=== PATIENT | female | born 1985 | race Asian ===

== ENCOUNTER 2020-04-21 16:48 | Emergency (ER) | payer OTHER, SELFPAY ==
[~2020-04-21] VITALS: Ht 152.4 cm; Wt 59.0 kg
[2020-04-21 16:54] VITALS: Ht 152.4 cm; Wt 59.0 kg
[2020-04-21 18:42] VITALS: BP 129/86
== END 2020-04-21 18:42 | disposition home or self-care (01) ==
LOC: ED 16:48
DX: M79.10 Myalgia, unspecified site (principal); R07.89 Other chest pain; R19.7 Diarrhea, unspecified; R43.2 Parageusia; J45.909 Unspecified asthma, uncomplicated; Z20.828 Contact with and (suspected) exposure to other viral communicable diseases
CPT/HCPCS: U0003